=== PATIENT | male | born 1965 | race Caucasian/White ===

== ENCOUNTER 2023-06-03 06:04 | Day surgery (SDC) | payer OTHER, SELFPAY ==
[2023-05-26 10:16] LABS: Hematocrit 42.5 % (39.0-52.0); Hemoglobin 14.8 g/dL (13.0-18.0); Mean Corp Hgb Conc. 34.8 g/dL (33.0-37.0); Mean Corpuscular Hgb 30.7 pg (27.0-31.0); Mean Corpuscular Volume 88.2 fL (80.0-94.0); Mean Platelet Volume 10.1 fL (7.4-10.4); Platelet Count 189 10^3/uL (130-400); Red Blood Cell Count 4.82 10^6/uL (4.70-6.10); Red Cell Dist. Width 11.8 % (11.5-14.5)
[2023-05-26 10:37] LABS: Blood Urea Nitrogen 13 mg/dl (9-20); Calcium 9.5 mg/dl (8.4-10.2); Carbon Dioxide 33 mmol/L (22-30); Chloride 104 mmol/L (98-107); Glucose 98 mg/dl (70-99); Potassium 4.4 mmol/L (3.5-5.1); Sodium 143 mmol/L (135-145); eGFR > 60.00
[2023-05-26 12:23] VITALS: BMI 22.9
[2023-06-03] VITALS (11 sets, daily range): BP systolic 120–143; BP diastolic 61–88; BMI 22.9
[2023-06-03] MEDS: TYLENOL 1000 MG PO (06:14)
[2023-06-03] MEDS: NORMOSOL-R 1000 IV (06:26)
== END 2023-06-03 11:05 | disposition home or self-care (01) ==
LOC: SDS 06:04
PROVIDERS: ATTENDING PHYSICIAN Surgery
DX: K40.90 Unilateral inguinal hernia, without obstruction or gangrene, not specified as recurrent (principal)
CPT/HCPCS: 49650; 36415; 80048; 85027; 93005; C1781